=== PATIENT | male | born 1995 | race Two or more races ===

== ENCOUNTER 2024-12-25 15:21 | Emergency (ER) | payer MEDICAID, SELFPAY ==
--- NOTE | 2024-12-25 15:40 | EKG_ITS ---
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
--- NOTE | 2024-12-25 15:40 | XR_ITS ---
Examination: AP chest single view TECHNIQUE: AP upright portable chest single view Date and time: December 25, 2024, 1639 hours INDICATIONS: Chest pain today. FINDINGS: Normal heart size. Lungs are clear. Osseous structures are intact. IMPRESSION: No active disease.
[2024-12-25 15:46] VITALS: BMI 43.4
[2024-12-25 15:50] VITALS: BP 141/91; PULSE 119; RESP 20; TEMP 37.7; O2SAT 94
--- NOTE | 2024-12-25 15:51 | PD.EDURI ---
Upper Respiratory Inf. RME/HPI General Chief Complaint: Flu Like Symptoms Stated Complaint: FLU SYMPTOMS Time Seen by Provider: 12/25/24 15:40 Source: patient and EMS Arrival date/time: 12/25/24 15:21 Mode of arrival: EMS Limitations: no limitations RME / HPI RME / HPI Narrative: 29-year-old male who is brought in by EMS for a 1 day history of runny nose, congestion, cough, and myalgias. He has no chronic medical history. He has no vomiting or diarrhea. He has no skin changes. Upon arrival patient is tachycardic but afebrile. His blood pressure is 141/91. Related Data Previous Rx's ?Medication ?Instructions ?Recorded Hydrocodone/Acetaminophen * (NORCO 1 - 2 tab PO Q4H PRN PAIN #10 tabs 05/26/17 5/325 *) amoxicillin 500 mg capsule 1 cap PO TID om #21 caps 05/26/17 tramadol 50 mg tablet 50 mg PO Q8H PRN pain #20 tabs 12/14/22 Allergies Allergy/AdvReac Type Severity Reaction Status Date / Time No Known Allergies Allergy Verified 06/15/17 19:15 Review of Systems Review of Systems Systems Reviewed: All systems reviewed, normal except as documented ED Exam General Limitations: Present no limitations General appearance: Present alert and other (Patient is ill-appearing but nontoxic-appearing.) Head Head exam: Present atraumatic Eye Eye exam: Present normal appearance, PERRL and EOMI ENT ENT exam: Present normal exam, normal oropharynx and mucous membranes moist Neck Neck exam: Present normal inspection, full ROM and trachea midline Chest Chest inspection: Present normal inspection and symmetric chest wall rise Respiratory Respiratory exam: Present normal lung sounds bilaterally; Absent respiratory distress or wheezes Cardiovascular Cardiovascular exam: Present regular rate, tachycardia and normal heart sounds Abdominal Exam Abdominal exam: Present soft and normal bowel sounds Extremities Exam Extremities exam: Present normal inspection and full ROM; Absent pedal edema Back Exam Back exam: Present normal inspection and full ROM Neurological Exam Neurological exam: Present alert and oriented X3 Psychiatric Psychiatric exam: Present normal affect and normal mood Skin Skin exam: Present warm, dry, intact and normal color Course Quality Measures none Orders Category Date Time Status Bedside COVID-19 Antigen Test NOW Care 12/25/24 15:40 Active Bedside Influenza A&B Antigen Test NOW Care 12/25/24 15:41 Completed EKG (ED ONLY) *Do not use* NOW Care 12/25/24 15:40 Completed EKG (ED Only) Stat Exams 12/25/24 15:40 Draft XR chest 1V Stat Exams 12/25/24 15:40 Completed BNP [B-Type Natriuretic Peptide] Stat Lab 12/25/24 16:01 Completed CBC Stat Lab 12/25/24 16:01 Completed CMP [Comprehensive Metabolic Panel] Stat Lab 12/25/24 16:01 Completed Lipase Stat Lab 12/25/24 16:01 Completed Mag [Magnesium] Stat Lab 12/25/24 16:01 Completed Troponin I Stat Lab 12/25/24 16:01 Completed UA, C/S IF [Urinalysis, C/S if Indicated] Stat Lab 12/25/24 18:11 Received Ibuprofen Tab [Motrin Tab] Med 12/25/24 15:40 Discontinued 600 mg PO X1 ONE Magnesium Sulfate 1 gm Ivpb [Magnesium Sulfate Ivpb] Med 12/25/24 17:30 Discontinued 1 gm in 100 ml IV X1 Vital Signs Vital signs: Vital Signs Temperature 99.8 F 12/25/24 15:50 Pulse Rate 119 H 12/25/24 15:50 Respiratory Rate 20 12/25/24 15:50 Blood Pressure 141/91 H 12/25/24 15:50 Pulse Oximetry (%) 94 L 12/25/24 15:50 Oxygen Delivery Method Room Air 12/25/24 15:50 Upper Respiratory Infection MDM Narrative MDM Narrative:: 29-year-old male who is brought in by EMS for a 1 day history of runny nose, congestion, cough, and myalgias. He has no chronic medical history. He has no vomiting or diarrhea. He has no skin changes. Upon arrival patient is tachycardic but afebrile. His blood pressure is 141/91. On exam, patient is nontoxic-appearing although he is tachycardic. He has no respiratory distress. He has no fever. Lung sounds are clear bilaterally. Workup was initiated and patient to screen positive for COVID. There is no other evidence of any cardiopulmonary disease. Patient was reexamined and the test results were discussed. I did review discharge from the ER at this time. We discussed return precautions. He agrees to return as needed for any worsening emergent changes. Patient data External records reviewed:: EMS form Clinical information provided by:: patient and EMS Social determinants that could affect healthcare access:: none Patient has the following chronic illnesses:: n/a How is presenting disease/condition affected by chronic disease/condition?: no chronic disease Evaluation data The following diagnostics were reviewed and interpreted by me:: lab results, radiology exam(s) and EKG tracing(s) Lab and/or radiology exams considered but not ordered:: n/a Interpretation Summary: COVID-19 Medications / Prescriptions Medications or Prescriptions considered but not ordered:: n/a Medication administrations:: Medication Administration History Discontinued Medications Magnesium Sulfate/Dextrose (Magnesium Sulfate Ivpb) 1 gm in 100 mls @ 100 mls/hr IV X1 ONE Stop: 12/25/24 18:29 Last Admin: 12/25/24 18:09 Dose: 100 mls/hr Documented By: ED Ibuprofen (Ibuprofen Tab 600 Mg Tablet) 600 mg PO X1 ONE Stop: 12/25/24 15:41 Last Admin: 12/25/24 17:14 Dose: 600 mg Documented By: ED See above Consultations Consultation(s) initiated? (list below): No Diagnosis Upper Respiratory Differential Diagnosis: upper respiratory infection, viral infection, bronchitis and influenza Most likely diagnosis given after review of the tests above:: Hypomagnesia, COVID-19 Admission Indicated Admission indicated?: not indicated Admission Request Was there a request for admission?: No Disposition Plan Disposition Plan: Discharge Discharge Attestation Discharge Attestation: The patient and all family members were given an opportunity to ask questions and understood the discharge instructions. Discharge instructions specifically effects, indications for sooner follow up or return to the emergency department, and the expected course of current diagnosis. Patient condition: Stable Discharge Plan Plan Patient Disposition: HOME (Self Care) Patient condition on transfer: Stable Prescriptions/Referrals Prescriptions/Med Rec: No Action amoxicillin 500 MG capsule 1 cap PO TID Qty: 21 0RF Rx Instructions: use for 7 days Hydrocodone/Acetaminophen * (NORCO 5/325 *) 1 TAB tablet 1 - 2 tab PO Q4H PRN (Reason: PAIN) Qty: 10 0RF Rx Instructions: FOR PAIN tramadol 50 mg tablet 50 mg PO Q8H PRN (Reason: pain) Qty: 20 0RF Referrals: No Primary/Family,Physician [Primary Care Provider] - In 1 week Problem List Clinical Impression: COVID-19, Hypomagnesemia Patient/Caregiver Discharge Instructions Education Materials: COVID-19 Home Care Additional Instructions: - Maintain oral hydration. - Use Tylenol and ibuprofen as needed for comfort. - Avoid contact with persons who are immunocompromise until your symptoms resolved. - Please return to the emergency room at anytime for any worsening or emergent changes as needed. Print Language: [place] Stand Alone Forms: [employer] Award Info., Patient Portal Info Letter
[2024-12-25 16:38] LABS: Basophils # (Auto) 0.1 Thou/mm3 (0.0-0.2); Basophils % (Auto) 1 % (0-2.5); Eosinophils # (Auto) 0.1 Thou/mm3 (0.0-0.5); Eosinophils % (Auto) 1 % (0-10); Hematocrit 45.3 % (41.0-53.0); Hemoglobin 14.9 g/dL (13.5-16.0); Immature Granulocytes Auto 0.04 Thou/mm3 (0.00-0.00); Lymphocytes # (Auto) 1.4 Thou/mm3 (1.0-4.8); Lymphocytes % (Auto) 14 % (10-50); Mean Corpuscular HGB Conc 32.9 g/dl (31.0-37.0); Mean Corpuscular Hemoglobin 30.5 pg (25.0-35.0); Mean Corpuscular Volume 93 fL (80-100); Monocytes # (Auto) 1.1 Thou/mm3 (0.0-0.8); Monocytes % (Auto) 11 % (0-12); Neutrophils # (Auto) 7.3 Thou/mm3 (1.8-7.7); Neutrophils % (Auto) 73 % (37-80); Nucleated Red Blood Cell # 0.00 Thou/mm3 (0.00-0.00); Nucleated Red Blood Cell % 0 /100 WBC (0); Platelet Count 217 Thou/mm3 (140-440); RDW Standard Deviation 43.3 fL (35.1-43.9); Red Blood Count 4.88 Miln/mm3 (4.50-5.90); White Blood Count 10.0 Thou/mm3 (3.8-10.6)
[2024-12-25 16:50] VITALS: BP 107/56; PULSE 107; RESP 18; TEMP 37.6; O2SAT 95
[2024-12-25 16:52] LABS: B-Type Natriuretic Peptide < 20 pg/mL (0-100)
[2024-12-25 16:53] LABS: Alanine Aminotransferase 111 U/L (10-49); Albumin, Serum 4.8 gm/dL (3.5-5.0); Albumin/Globulin Ratio 1.7 (1.2-2.2); Alkaline Phosphatase 86 U/L (46-116); Anion Gap 11 (7-16); Aspartate Amino Transferase 75 U/L (0-34); BUN/Creatinine Ratio 8 Ratio (12-20); Bilirubin,Total 0.4 mg/dL (0.3-1.2); Blood Urea Nitrogen 10 mg/dL (9-23); Calcium 10.4 mg/dL (8.3-10.6); Calcium (Corrected) 10.4 mg/dL (8.5-10.1); Carbon Dioxide 27.4 mMol/L (20.0-31.0); Chloride 99 mMol/L (98-107); Creatinine (Component) 1.2 mg/dL (0.6-1.3); Estimated Creatinine Clearance 133.2 mL/min (>60); Globulin 2.8 gm/dL (2.3-3.5); Glucose 94 mg/dL (74-106); Lipase 27 U/L (12-53); Magnesium 1.2 mg/dL (1.6-2.6); Osmolality,Calculated 272 (275-295); Potassium 4.1 mMol/L (3.4-5.1); Sodium 137 mMol/L (136-145); Total Protein 7.6 gm/dL (5.7-8.2); Troponin I < 0.002 ng/mL (0.0-0.045); eGFR > 60 See Note
[2024-12-25] MEDS: IBUPROFEN TAB 600 MG TABLET PO (17:14)
--- NOTE | 2024-12-25 17:15 | PC.NURSE ---
Pt. here from home to room 12 for SOB that started at 0200 this morning. Pt. states he felt like this last time he had covid. Pt.'s is bedside. Pt. states he has a headache. No SOB or distress noted at this time.
[2024-12-25 18:05] VITALS: BP 124/76; PULSE 98; RESP 17; TEMP 37; O2SAT 95
[2024-12-25 18:33] LABS: Collection Type, Urine Voided; Squamous Epithelial Cell,Urine 0 /hpf (0-5)
[2024-12-25 18:40] LABS: Bilirubin,Urine Negative (Negative); Blood,Urine Negative (Negative); Clarity,Urine Clear (Clear/Hazy); Color,Urine Lt-Yellow (Lt Yel-Yel); Culture Indicated,Urine Not Indicated; Glucose, Urine Negative (Negative); Ketones,Urine Negative (Negative); Leukocyte Esterase,Urine Negative (Negative); Nitrite,Urine Negative (Negative); PH,Urine 8.0 (5.0-7.0); Protein,Urine Negative (Neg - Trace); RBC,Urine 2 /hpf (0-3); Specific Gravity,Urine 1.019 (1.001-1.035); Urobilinogen,Urine Negative mg/dL (0.0-1.0); WBC,Urine < 1 /hpf (0-5)
[2024-12-25 19:52] VITALS: BP 144/91; PULSE 96; RESP 18; TEMP 36.7; O2SAT 98
== END 2024-12-25 19:54 | disposition home or self-care (01) ==
PROVIDERS: Physician Assistant Medical; Emergency Provider Emergency Medicine
DX: U07.1 COVID-19 (principal); E83.42 Hypomagnesemia; R00.0 Tachycardia, unspecified
CPT/HCPCS: 36415; 71045; 80053; 81001; 83690; 83735; 83880; 84484; 85025; 87400; 87811; 93005; 99283; J3475; A9270